=== PATIENT | female | born 1975 | race Caucasian/White ===

== ENCOUNTER → 2017-06-19 | Outpatient (CLI) | payer OTHER ==
--- NOTE | 2017-06-19 11:51 | Diagnostic Imaging Report ---
PROCEDURE:CHEST 2 VIEWS TECHNIQUE:PA and lateral chest INDICATION:Chest pain COMPARISON:None. FINDINGS: Lungs are clear and symmetrically inflated. No pleural effusions. Normal heart size, mediastinal contour, and pulmonary vasculature. Intact skeleton. CONCLUSION: Normal chest. Dictated by: Efrem Montes M.D. on 06/19/2017 at 11:51 Electronically approved by: Efrem Montes M.D. on 06/19/2017 at 11:51
== END ==
LOC: RAD 11:20
PROVIDERS: ATTEND Internal Medicine
DX: J06.9 Acute upper respiratory infection, unspecified (principal); R06.02 Shortness of breath
CPT/HCPCS: 71046

== ENCOUNTER → 2019-03-29 | Day surgery (SDC) | payer BC ==
[~2019-03-29] MED LIST: ACETAMINOPHEN 1000 MG/100 ML IV ONE; ACETAMINOPHEN/CODEINE 300MG - 30MG TAB ONE; CEFAZOLIN SOD 1 GM/NS 50ML 50 ML IV ONE; DEXAMETHASONE SOD PHOS INJ 4 MG/ML VIAL ONE; DIAZEPAM5 MG PO; FENTANYL CITRATE/PF 100MCG/2 ML INJ ONE; GLYCOPYRROLATE INJ 0.2 MG/ML VIAL ONE; LIDOCAINE HCL 2% LOCAL INJ 5 ML SDV VIAL INJ ONE; METOCLOPRAMIDE HCL 10 MG/2ML VIAL ONE; MIDAZOLAM HCL 2 MG/2 ML VIAL ONE; NORCO 5-325 TA1 EACH PO; ONDANSETRON HCL INJ 2MG/ML 2ML 2 MG/ML VIAL ONE; PROPOFOL IV EMULSION 10 MG/ML 20 ML VIAL ONE; SEVOFLURANE INHAL SOLN 250 ML PEN BTL ONE; ULTRAM 50MG50 MG PO; XANAX0.5 MG PO
--- OUTSIDE RECORDS SUMMARY | 2019-03-29 05:15 | XMS REPORT ---
Author Author [facility] Address Unknown Phone Unavailable Care Team Providers Care Cashier And Waiter/Waitress Name Role Phone NADIA EDDY Unavailable Unavailable Payers Payer Name Policy Type Policy Number Effective Date Expiration Date Problems This patient has no known problems. Allergies, Adverse Reactions, Alerts Allergy Name Allergy Type Status Severity Reaction(s) Onset Date Inactive Date Treating Clinician Comments No Known Allergies DA Active U 2015-05-27 00:00:00 Medications This patient has no known medications. Results Test Description Test Time Test Comments Text Results Atomic Results Result Comments URINALYSIS COMPLETE 2018-12-28 14:40:00 UA COLOR (test code=COLU) LIGHT YELLOW YELLOW UA APPEARANCE (test code=APPU) SLIGHTLY HAZY CLEAR UA GLUCOSE DIPSTICK (test code=DGLUU) norm mg/dL NEGATIVE UA BILIRUBIN DIPSTICK (test code=BILU) NEGATIVE mg/dL NEGATIVE UA KETONE DIPSTICK (test code=KETU) neg mg/dL NEGATIVE UA SPECIFIC GRAVITY (test code=SGU) 1.005 1.001-1.035 UA BLOOD DIPSTICK (test code=JAMES) 10 (Trace) Juan/uL NEGATIVE UA PH DIPSTICK (test code=JOSUE) 7.0 5.0-8.0 UA PROTEIN DIPSTICK (test code=PROU) neg mg/dL Neg-15 UA UROBILINIOGEN DIPSTICK (test code=URO) norm mg/dL 0.0-0.2 UA NITRITE DIPSTICK (test code=YUKO) NEGATIVE NEGATIVE UA LEUKOCYTE ESTERASE DIPSTICK (test code=LEUU) 25 Darrell/uL (Trace) uL NEGATIVE UA WBC (test code=WBCU) 0-5 per HPF 0-5 UA RBC (test code=RBCU) 0-3 per HPF 0-5 UA EPITHELIAL CELLS (test code=EPIU) Few (2-5/hpf) per HPF Few UA BACTERIA (test code=BACU) MODERATE per HPF NONE URINALYSIS W/O [id number] 14:40:00* Test Item Value Reference Range Comments UA MICROSCOPIC NEEDED? (test code=UAMICRO) YES URINALYSIS [id number] 14:31:00* Test Item Value Reference Range Comments UA COLOR (test code=COLU) LIGHT YELLOW YELLOW UA APPEARANCE (test code=APPU) SLIGHTLY HAZY CLEAR UA GLUCOSE DIPSTICK (test code=DGLUU) norm mg/dL NEGATIVE UA BILIRUBIN DIPSTICK (test code=BILU) NEGATIVE mg/dL NEGATIVE UA KETONE DIPSTICK (test code=KETU) neg mg/dL NEGATIVE UA SPECIFIC GRAVITY (test code=SGU) 1.005 1.001-1.035 UA BLOOD DIPSTICK (test code=JAMES) 10 (Trace) Juan/uL NEGATIVE UA PH DIPSTICK (test code=JOSUE) 7.0 5.0-8.0 UA PROTEIN DIPSTICK (test code=PROU) neg mg/dL Neg-15 UA UROBILINIOGEN DIPSTICK (test code=URO) norm mg/dL 0.0-0.2 UA NITRITE DIPSTICK (test code=YUKO) NEGATIVE NEGATIVE UA LEUKOCYTE ESTERASE DIPSTICK (test code=LEUU) 25 Darrell/uL (Trace) uL NEGATIVE UA WBC (test code=WBCU) per HPF 0-5 UA RBC (test code=RBCU) per HPF 0-5 UA EPITHELIAL CELLS (test code=EPIU) per HPF Few UA BACTERIA (test code=BACU) per HPF NONE URINALYSIS W/O [id number] 14:31:00* Test Item Value Reference Range Comments UA MICROSCOPIC NEEDED? (test code=UAMICRO) YES URINALYSIS [id number] 14:31:00* Test Item Value Reference Range Comments UA COLOR (test code=COLU) LIGHT YELLOW YELLOW UA APPEARANCE (test code=APPU) SLIGHTLY HAZY CLEAR UA GLUCOSE DIPSTICK (test code=DGLUU) norm mg/dL NEGATIVE UA BILIRUBIN DIPSTICK (test code=BILU) NEGATIVE mg/dL NEGATIVE UA KETONE DIPSTICK (test code=KETU) neg mg/dL NEGATIVE UA SPECIFIC GRAVITY (test code=SGU) 1.005 1.001-1.035 UA BLOOD DIPSTICK (test code=JAMES) 10 (Trace) Juan/uL NEGATIVE UA PH DIPSTICK (test code=JOSUE) 7.0 5.0-8.0 UA PROTEIN DIPSTICK (test code=PROU) neg mg/dL Neg-15 UA UROBILINIOGEN DIPSTICK (test code=URO) norm mg/dL 0.0-0.2 UA NITRITE DIPSTICK (test code=YUKO) NEGATIVE NEGATIVE UA LEUKOCYTE ESTERASE DIPSTICK (test code=LEUU) 25 Darrell/uL (Trace) uL NEGATIVE UA WBC (test code=WBCU) per HPF 0-5 UA RBC (test code=RBCU) per HPF 0-5 UA EPITHELIAL CELLS (test code=EPIU) per HPF Few UA BACTERIA (test code=BACU) per HPF NONE URINALYSIS W/O [id number] 14:31:00* Test Item Value Reference Range Comments UA MICROSCOPIC NEEDED? (test code=UAMICRO) YES - CT HEAD/BRAIN W/O [id number] 13:41:00 [facility] [place] [facility] 1975 Age/S: 43 / F [address] [facility] Unit #: [id number] Loc: [facility] [address] Phys: Bertin High MD Acct: [id number] Dis Date: Status: REG ER PHONE #: [phone] Exam Date: 12/28/2018 1334 FAX #: [phone] Reason: left arm numbness EXAMS: CPT CODE: [id number] CT HEAD/BRAIN W/O CONT 95552 HISTORY: Left arm numbness. COMPARISON: May 27, 2015. CT brain without contrast: Automated exposure control. No acute intracranial bleeds or extra-axial collections and there is no acute territorial vascular infarction. The wood-white matter differentiation is preserved. The sulci, gyri, ventricles and subarachnoid spaces and the basilar cisterns are normal for patient's age. No herniation or hydrocephalus or midline shift is noted. Fourth ventricle remains midline. Portions of the visualized paranasal sinuses demonstrated mucosal thickening of the floor of the right sphenoid sinus. No obvious bony calvarial defect is noted. IMPRESSION: No acute intracranial bleeds or extra-axial collections. No acute territorial vascular in farction. Correlate with MRI scan for further evaluation. No herniation or hydrocephalus or midline shift. Elect ronically Signed by Rosie Dubois on 12/28/2018 at 1341 Reported and signed by: Billy Dubois M.D. CC: Bertin High MD Technologist:Padmini Liz RT(R)(CT) CTDI: 26.61 DLP: 475.27 Trnscb Date/Time: 12/28/2018 (1341) [email or web address] Orig Print D/T: S: 12/28/2018 (7644) PAGE 1 Signed Report COMPREHENSIVE METABOLIC PANEL 2018-12-28 13:37:00* Test Item Value Reference Range Comments SODIUM (test code=NA) 141 mmol/L 136-145 POTASSIUM (test code=K) 3.9 mmol/L 3.5-5.1 CHLORIDE (test code=CL) 106 mmol/L 101-109 CARBON DIOXIDE (test code=CO2) 25.3 mmol/L 21-32 ANION GAP (test code=GAP) 14 mmol/L 10-20 GLUCOSE (test code=GLU) 95 mg/dL 74-106 BLOOD UREA NITROGEN (test code=BUN) 13 mg/dL 3-21 CREATININE (test code=CREAT) 1.08 mg/dL 0.55-1.3 BUN/CREATININE RATIO (test code=BUN/CREA) 12.0 10-20 TOTAL PROTEIN (test code=PROT) 7.3 g/dL 6.5-8.4 ALBUMIN (test code=ALB) 3.7 g/dL 3.4-4.8 GLOBULIN (test code=GLOB) 3.6 G/DL 1-10 ALBUMIN/GLOBULIN RATIO (test code=A/G) 1.03 RATIO 0.75-1.50 CALCIUM (test code=CA) 8.3 mg/dL 8.4-10.2 BILIRUBIN TOTAL (test code=BILT) 0.40 mg/dL 0.0-1.0 SGOT/AST (test code=AST) 21 U/L 6-32 SGPT/ALT (test code=ALT) 26 U/L 12-78 Note: Change in REFERENCE RANGE due to new reagent method. ALKALINE PHOSPHATASE TOTAL (test code=ALKP) 40 U/L 38-126 CREATINE KINASE (CK)2018-12-28 13:37:00* Test Item Value Reference Range Comments CREATINE KINASE (CK) (test code=CK) 108 U/L 26-192 [id number] 13:37:00* Test Item Value Reference Range Comments CKMB (test code=CKMBT) 1.3 ng/mL 0.0-5.0 [id number] 13:37:00* Test Item Value Reference Range Comments TROPONIN-I (test code=TROPI) <0.015 ng/mL 0.00-0.056 COMPREHENSIVE METABOLIC [id number] 13:25:00* Test Item Value Reference Range Comments SODIUM (test code=NA) 141 mmol/L 136-145 POTASSIUM (test code=K) 3.9 mmol/L 3.5-5.1 CHLORIDE (test code=CL) 106 mmol/L 101-109 CARBON DIOXIDE (test code=CO2) 25.3 mmol/L 21-32 ANION GAP (test code=GAP) 14 mmol/L 10-20 GLUCOSE (test code=GLU) 95 mg/dL 74-106 BLOOD UREA NITROGEN (test code=BUN) 13 mg/dL 3-21 CREATININE (test code=CREAT) 1.08 mg/dL 0.55-1.3 BUN/CREATININE RATIO (test code=BUN/CREA) 12.0 10-20 TOTAL PROTEIN (test code=PROT) gram/dL 6.4-8.2 ALBUMIN (test code=ALB) g/dL 3.4-5.0 GLOBULIN (test code=GLOB) g/dL 2.7-4.2 ALBUMIN/GLOBULIN RATIO (test code=A/G) 0.75-1.50 CALCIUM (test code=CA) 8.3 mg/dL 8.4-10.2 BILIRUBIN TOTAL (test code=BILT) mg/dL 0.2-1.2 SGOT/AST (test code=AST) IUnit/L 15-37 SGPT/ALT (test code=ALT) U/L 10-69 ALKALINE PHOSPHATASE TOTAL (test code=ALKP) IUnit/L 45-117 CREATINE KINASE (CK)2018-12-28 13:25:00* Test Item Value Reference Range Comments CREATINE KINASE (CK) (test code=CK) IUnit/L 26-208 [id number] 13:25:00* Test Item Value Reference Range Comments CKMB (test code=CKMBT) ng/mL 0-6.0 [id number] 13:25:00* Test Item Value Reference Range Comments TROPONIN-I (test code=TROPI) ng/mL 0-0.045 CBC W/AUTO [id number] 13:12:00* Test Item Value Reference Range Comments WHITE BLOOD CELL (test code=WBC) 6.2 K/mm3 4.5-12.5 RED BLOOD CELL (test code=RBC) 4.61 mill/mm3 3.7-5.2 HEMOGLOBIN (test code=HGB) 13.6 gram/dL 11.5-15.5 HEMATOCRIT (test code=HCT) 39.5 % 36.0-46.0 MEAN CELL VOLUME (test code=MCV) 85.7 fL 80-98 MEAN CELL HGB (test code=MCH) 29.5 picogram 27.0-33.0 MEAN CELL HGB CONCETRATION (test code=MCHC) 34.4 gram/dL 33.0-36.0 RED CELL DISTRIBUTION WIDTH (test code=RDW) 13.3 % 11.6-16.2 RED CELL DISTRIBUTION WIDTH SD (test code=RDW-SD) 41.1 fL 37.0-51.0 PLATELET COUNT (test code=PLT) 221 K/mm3 150-450 MEAN PLATELET VOLUME (test code=MPV) 10.5 fL 6.7-11.0 NEUTROPHIL % (test code=NT%) 63.0 % 39.0-69.0 LYMPHOCYTE % (test code=LY%) 28.1 % 25.0-55.0 MONOCYTE % (test code=MO%) 6.9 % 0.0-10.0 EOSINOPHIL % (test code=EO%) 1.6 % 0.0-5.0 BASOPHIL % (test code=BA%) 0.2 % 0.0-1.0 NEUTROPHIL # (test code=NT#) 3.92 K/mm3 1.8-7.7 LYMPHOCYTE # (test code=LY#) 1.75 K/mm3 1.0-5.0 MONOCYTE # (test code=MO#) 0.43 K/mm3 0-0.8 EOSINOPHIL # (test code=EO#) 0.10 K/mm3 0.0-0.5 BASOPHIL # (test code=BA#) 0.01 K/mm3 0.0-0.2 CHEST 2 VIEWS [place] [address] Patient Name: FRIENDWILTON MR #: [id number] : 1975 Age/Sex: 42/F Req #: [id number] Adm Physician: Ordered by: NADIA EDDY MD Report #: [id number] Location: [facility] Room/Bed: Procedure: [id number] DX/CHEST 2 VIEWS Exam Date: Exam Time: 1120 REPORT STATUS: Signed PROCEDURE: CHEST 2 VIEWS TECHNIQUE: PA and lateral chest INDICATION: Chest pain COMPARISON: None. FINDINGS: Lungs are clear and symmetric ally inflated. No pleural effusions. Normal heart size, mediastinal contour, and pulmonary vasculature. Intact skeleton. CONCLUSION: Normal ch est. Dictated by: Martin Montes M.D. on 06/19/2017 at 11:51 Electronically approved by: Martin Montes M.D. on 06/19/2017 at 11:51 Dictated By: MARTIN MONTES MD 1151 Transcribed By: MENDY on 06/19/17 1151 COPY TO: NADIA EDDY MD
[2019-03-29 08:45] VITALS: BP 148/81
--- NOTE | 2019-03-29 12:05 | Operative Report ---
DATE OF PROCEDURE: 03/29/2019 SURGEON: Jeff Juárez MD MARKETING RESEARCH ANALYST: Jesús Bosch, certified PA. PREOPERATIVE DIAGNOSIS: Bilateral carpal tunnel syndrome. POSTOPERATIVE DIAGNOSIS: Bilateral carpal tunnel syndrome. PROCEDURE: Bilateral endoscopic carpal tunnel release. INDICATIONS: The patient is a 43-year-old lady, who has clinic signs and symptoms consistent with bilateral carpal tunnel syndrome. She also has evidence of a mild left cervical radiculopathy. The findings and options have been discussed. She would like to proceed with definitive treatment for her carpal tunnel. The risks and benefits were explained. She stated she understood and wished to proceed. PROCEDURE IN DETAIL: The patient was brought to the operating room and placed under general anesthetic. Both upper extremities were prepped and draped in a sterile manner. A preoperative time-out was performed. Initial attention was directed towards the left upper extremity. The extremity was exsanguinated and a proximal tourniquet was inflated to 250 mmHg. An incision was made over the flexion crease of the left wrist. The palmaris longus was retracted to the radial side of the wound. The flexor retinaculum was elevated and incised with a pair of tenotomy scissors. An elevator was used to tease the tenosynovium off the undersurface of the transverse carpal ligament. Dilators were placed and the hook of the hamate was palpated. The Micro[employer] endoscope was then placed into the carpal tunnel. The undersurface of the carpal tunnel of the transverse carpal ligament was cleanly visualized without evidence of soft tissue interposition. The knife was deployed and the ligament was cut from distal to proximal. A full-thickness cut was noted. The proximal retinaculum was incised under direct visualization. The wound was closed with two interrupted nylon stitches. A sterile bandage was applied and the tourniquet was deflated. The same procedure was then performed on the right side. The patient was then extubated and transported to the recovery room in stable condition. There was no blood loss and all needle and sponge counts were correct. Jeff Juárez MD DR/CHARU /[id number]
== END | disposition home or self-care (01) ==
LOC: OR 05:08
PROVIDERS: ATTEND Specialist
DX: G56.03 Carpal tunnel syndrome, bilateral upper limbs (principal); F41.9 Anxiety disorder, unspecified; I10 Essential (primary) hypertension; I83.90 Asymptomatic varicose veins of unspecified lower extremity; M54.9 Dorsalgia, unspecified; M54.12 Radiculopathy, cervical region
CPT/HCPCS: 29848; J0131; J0690; J1100; J2001; J2250; J2405; J2704; J2765; J3010

== ENCOUNTER 2022-06-06 06:43 | Emergency (ER) | payer BC ==
[~2022-06-06] VITALS: Ht 165.1 cm; Wt 117.0 kg
[~2022-06-06 06:43] MED LIST changes: -ACETAMINOPHEN 1000 MG/100 ML IV ONE; -ACETAMINOPHEN/CODEINE 300MG - 30MG TAB ONE; -CEFAZOLIN SOD 1 GM/NS 50ML 50 ML IV ONE; -DEXAMETHASONE SOD PHOS INJ 4 MG/ML VIAL ONE; -FENTANYL CITRATE/PF 100MCG/2 ML INJ ONE; -GLYCOPYRROLATE INJ 0.2 MG/ML VIAL ONE; -LIDOCAINE HCL 2% LOCAL INJ 5 ML SDV VIAL INJ ONE; -METOCLOPRAMIDE HCL 10 MG/2ML VIAL ONE; -MIDAZOLAM HCL 2 MG/2 ML VIAL ONE; -ONDANSETRON HCL INJ 2MG/ML 2ML 2 MG/ML VIAL ONE; -PROPOFOL IV EMULSION 10 MG/ML 20 ML VIAL ONE; -SEVOFLURANE INHAL SOLN 250 ML PEN BTL ONE
[2022-06-06] MEDS ORDERED: SODIUM CHLORIDE FLUSH 10 ML SYR IV PRN (07:02)
[2022-06-06] MEDS ORDERED: KETOROLAC TROMETHAMINE 30 MG/ML VIAL IV STA (07:02)
[2022-06-06] MEDS ORDERED: ASPIRIN 325 MG TAB PO ONE (07:02)
[2022-06-06 07:30] LABS: BASOPHILS % 0.4 % (0.0-1.0); EOSINOPHILS # (AUTO) 0.2 (0.0-0.4); EOSINOPHILS % 2.8 % (0.0-6.0); HEMATOCRIT 41.8 % (34.2-44.1); HEMOGLOBIN 14.1 g/dL (12.0-16.0); LYMPHOCYTES # (AUTO) 1.8 (1.0-3.2); LYMPHOCYTES % 26.6 % (18.0-39.1); MEAN CORPUSCULAR HEMOGLOBIN 28.8 pg (28-32); MEAN CORPUSCULAR HGB CONC 33.7 g/dL (31-35); MEAN CORPUSCULAR VOLUME 85.3 fL (81-99); MONOCYTES # (AUTO) 0.4 (0.2-0.8); MONOCYTES % 5.9 % (4.4-11.3); NEUTROPHILS # (AUTO) 4.3 (2.1-6.9); NEUTROPHILS % 64.2 % (38.7-80.0); PLATELET COUNT 249 x10e3/uL (140-360); RED CELL DISTRIBUTION WIDTH 13.8 % (11.7-14.4)
[2022-06-06 07:43] LABS: INR 0.89; PROTHROMBIN TIME 12.2 seconds (11.9-14.5)
[2022-06-06 07:44] LABS: PARTIAL THROMBOPLASTIN TIME 28.8 seconds (23.8-35.5)
[2022-06-06 07:49] LABS: ALANINE AMINOTRANSFERASE 32 IU/L (0-55); ALBUMIN 3.8 g/dL (3.5-5.0); ALBUMIN/GLOBULIN RATIO 1.1 (0.8-2.0); ALKALINE PHOSPHATASE 53 IU/L (40-150); BLOOD UREA NITROGEN 21 mg/dL (7-26); BUN/CREATININE RATIO 24 (6-25); CALCIUM 8.7 mg/dL (8.4-10.2); CARBON DIOXIDE 22 mmol/L (22-29); CHLORIDE 109 mmol/L (98-107); CREATININE, SERUM 0.88 mg/dL (0.57-1.11); GLUCOSE 92 mg/dL (74-118); LIPASE 34 U/L (8-78); SODIUM 140 mmol/L (136-145)
[2022-06-06 08:40] VITALS: BP 129/94
== END 2022-06-06 08:38 | disposition home or self-care (01) ==
LOC: ER 06:46
DX: R07.9 Chest pain, unspecified (principal); I10 Essential (primary) hypertension
CPT/HCPCS: 36415; 71045; 80053; 83690; 84484; 85025; 85610; 85730; 93005; 99284; J1885